=== PATIENT | male | born 2000 | race Caucasian/White ===

== ENCOUNTER 2025-06-04 19:06 | Emergency (ER) | payer OTHER ==
[~2025-06-04] VITALS: Ht 167.6 cm; Wt 64.9 kg
[2025-06-04 19:08] VITALS: BP 137/84; TEMP 99; O2SAT 100
[2025-06-04] MEDS: ACETAMINOPHEN 500 MG TAB PO ONE (20:10)
== END 2025-06-04 21:23 | disposition home or self-care (01) ==
LOC: M ED 19:06
DX: S13.4XXA Sprain of ligaments of cervical spine, initial encounter (principal); S23.3XXA Sprain of ligaments of thoracic spine, initial encounter; S33.5XXA Sprain of ligaments of lumbar spine, initial encounter; Y92.9 Unspecified place or not applicable; Y93.9 Activity, unspecified; Y99.9 Unspecified external cause status; V49.40XA Driver injured in collision with unspecified motor vehicles in traffic accident, initial encounter; F17.290 Nicotine dependence, other tobacco product, uncomplicated